=== PATIENT | male | born 1995 | race Caucasian/White ===

== ENCOUNTER 2018-12-20 11:29 | Emergency (ER) | payer SELFPAY ==
[2018-12-20 11:50] VITALS: BP 148/88
[2018-12-20] MEDS: Diazepam 5 MG Tab PO ONE (12:04)
[2018-12-20] MEDS: Ketorolac 60 MG/2 ML SDV IM ONE (12:15)
--- NOTE | 2018-12-20 12:21 | EDM.PDOC ---
ED HPI GENERAL MEDICAL PROBLEM - General Chief Complaint: Back Pain or Injury Stated Complaint: BACK PAIN- NUMBNESS Time Seen by Provider: 12/20/18 12:16 Source of Information: Reports: Patient History Limitations: Reports: No Limitations - History of Present Illness INITIAL COMMENTS - FREE TEXT/NARRATIVE: Patient is a 23-year-old gentleman who presents to the emergency department this afternoon with a complaint of low back pain. Patient states that he does have chronic low back pain intermittently, and recently arrived here from [place] and has been sleeping on a couch for the last several nights. 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 Patient denies any specific injury or insult, any trauma, abdominal pain, nausea, vomiting, diarrhea, saddle anesthesia, urinary or bowel incontinence. 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 Lower Back Pain Score (Numeric/FACES): 5 - Related Data Allergies Allergy/AdvReac Type Severity Reaction Status Date / Time No Known Drug Allergies Allergy Cannot Verified 12/20/18 11:56 Remember Home Meds: Home Meds Meloxicam [Mobic] 15 mg PO DAILY #30 tab 12/20/18 [Rx] Methocarbamol [Robaxin-750] 750 mg PO Q6HR #30 tablet 12/20/18 [Rx] Social & Family History - Tobacco Use Smoking Status *Q: Current Every Day Smoker Years of Tobacco use: 7 Packs/Tins Daily: 0.1 - Caffeine Use Caffeine Use: Reports: None - Recreational Drug Use Recreational Drug Use: No ED ROS GENERAL - Review of Systems Review Of Systems: ROS reveals no pertinent complaints other than HPI. Constitutional: Reports: No Symptoms HEENT: Reports: No Symptoms Respiratory: Reports: No Symptoms Cardiovascular: Reports: No Symptoms Endocrine: Reports: No Symptoms GI/Abdominal: Reports: No Symptoms : Reports: No Symptoms Musculoskeletal: Reports: Back Pain Skin: Reports: No Symptoms Neurological: Reports: No Symptoms Psychiatric: Reports: No Symptoms Hematologic/Lymphatic: Reports: No Symptoms ED EXAM,LOWER BACK PAIN/INJURY - Physical Exam Exam: See Below Exam Limited By: No Limitations General Appearance: Alert, WD/WN, No Apparent Distress Throat/Mouth: Normal Inspection, Normal Oropharynx, No Airway Compromise Head: Atraumatic, Normocephalic Neck: Normal Inspection, Supple, Non-Tender, Full Range of Motion Respiratory/Chest: No Respiratory Distress, Lungs Clear Cardiovascular: Regular Rate, Rhythm, No Murmur GI/Abdominal: Normal Bowel Sounds, Soft, Non-Tender, No Organomegaly, No Distention, No Abnormal Bruit, No Mass, Pelvis Stable Back Exam: Paraspinal Tenderness (Minimal lumbar sacral). No: CVA Tenderness (L ), CVA Tenderness (R) Extremities: Normal Inspection, Normal Range of Motion, Non-Tender, No Pedal Edema, Normal Capillary Refill Neurological: Alert, Normal Mood/Affect, Normal Dorsiflexion, Normal Plantar Flexion, No Motor/Sensory Deficits, Oriented x 3 Psychiatric: Normal Affect, Normal Mood Skin Exam: Warm, Dry, Intact, Normal Color, No Rash Lymphatic: No Adenopathy Course - Vital Signs Last Recorded V/S: Last Vital Signs Temp 97.5 F 12/20/18 11:44 Pulse 72 12/20/18 11:44 Resp 16 12/20/18 11:44 BP 148/88 H 12/20/18 11:44 Pulse Ox 96 12/20/18 11:44 - Orders/Labs/Meds Meds: Medications Discontinued Medications Generic Name Dose Route Start Last Admin Trade Name Erwinq PRN Reason Stop Dose Admin Diazepam 5 mg 12/20/18 11:57 Valium. PO 12/20/18 11:58 ONETIME ONE Ketorolac Tromethamine 60 mg 12/20/18 11:57 Toradol IM 12/20/18 11:58 ONETIME ONE - Re-Assessments/Exams Free Text/Narrative Re-Assessment/Exam: 12/20/18 12:23 Patient afebrile, vital signs stable, 60 mg Toradol IM and 5 mg in given in ER. Pain subsided. Patient will follow-up with PCP Departure - Departure Time of Disposition: 12:33 Disposition: Home, Self-Care 01 Condition: Good Clinical Impression: Muscle spasm of back Lumbosacral strain Qualifiers: Encounter type: initial encounter Qualified Code(s): S39.012A - Strain of muscle, fascia and tendon of lower back, initial encounter Chronic low back pain Qualifiers: Back pain laterality: bilateral Sciatica presence: without sciatica Qualified Code(s): M54.5 - Low back pain; G89.29 - Other chronic pain - Discharge Information Instructions: Muscle Cramps and Spasms, [id number], Chronic Back Pain, Easy- to-Read, Back Exercises, [id number], Lumbosacral Strain Referrals: Madeline Wetzel MD [Primary Care Provider] - Additional Instructions: Follow-up with PCP next week. Return to emergency department sooner if symptoms continue or worsen. - Assessment/Plan Assessment:: Chronic Low back pain Plan: Follow-up with PCP
== END 2018-12-20 12:42 | disposition home or self-care (01) ==
LOC: KA.ED 11:29
DX: S39.012A Strain of muscle, fascia and tendon of lower back, initial encounter (principal); F17.210 Nicotine dependence, cigarettes, uncomplicated; X58.XXXA Exposure to other specified factors, initial encounter
CPT/HCPCS: 96372; 99283; A9270-GY; J1885